=== PATIENT | female | born 1965 | race Caucasian/White ===

== ENCOUNTER 2022-09-03 07:18 | Observation (INO) | payer BC ==
--- OUTSIDE RECORDS SUMMARY | 2022-09-03 07:24 | XMS REPORT | Continuity of Care Document ---
:1965 Author Organization [facility] t Address [address] [place] [address] Care Team Providers Name Role Phone EMILE WELCH Primary Care Physician Unavailable PORFIRIO CHAPMAN Attending Clinician Unavailable MARY CARMEN LUEVANO Attending Clinician Unavailable MARY CARMEN LUEVANO Attending Clinician Unavailable Cheyanne Mancera MD Attending Clinician [phone] Behzad Leger MD Attending Clinician [phone] Craig Castle MD Attending Clinician Doctor Unassigned, [place] Attending Clinician Unavailable Luci Naidu PA-C Attending Clinician 2, [facility] Attending Clinician Unavailable LUCI NAIDU Attending Clinician Unavailable Peace Og MA Attending Clinician Unavailable Pepito Moreno DO Attending Clinician Porfirio Chapman MD Attending Clinician Romulo Orosco CRNA Attending Clinician Davis Grant MD Attending Clinician Pob, [facility] Main Attending Clinician Unavailable Only, [facility] Test Attending Clinician Unavailable Radiology Attending Clinician Unavailable RADIOLOGY Attending Clinician Unavailable PORFIRIO CHAPMAN Admitting Clinician Unavailable CHEYANNE MANCERA Admitting Clinician Unavailable Porfirio Chapman MD Admitting Clinician Payers Payer Name Policy Type Policy Number Effective Date Expiration Date S [facility] [id number] 2020 00:00:00 Problems Condition Condition Condition Status Onset Resolution Last Treating Co mments Source Name Details Category Date Date Treatment Clinician Date Morbid Morbid Disease Active Univers obesity obesity 3-10 ity of with body with body 00:00: [place] s mass index mass index 00 Me dical of [facility] 40.0-49.9 40.0-49.9 Allergies, Adverse Reactions, Alerts Allergy Allergy Status Severity Reaction(s) Onset Inactive Treating Comm ents Source Name Type Date Date Clinician NO KNOWN Drug Active Univers ALLERGIE Class ity of S [facility] Social History Social Habit Start Date Stop Date Quantity Comments Source Tobacco use and 2022-04-19 2022-04-19 Smokeless tobacco [facility] exposure 00:00:00 00:00:00 non-user Exposure to 2022-02-06 2022-02-16 Not sure [facility] SARS-CoV-2 00:00:00 07:51:00 [facility] (event) [place] Alcohol intake 2022-02-16 2022-02-16 Ex-drinker [facility] 00:00:00 00:00:00 (finding) [facility] Sex Ass[birth year] At [birth year] F [facility] 00:00:00 00:00:00 Smoking Status Start Date Stop Date Source Never smoked tobacco [facility] Medications Ordered Filled Start Stop Current Ordering Indication Dosage Frequency Signature Comments Components Source Medication Medication Date Date Medication? Clinician (SIG) Name Name levothyroxi Yes 175ug QD Take 1 Met hodi ne 3-[address] (SYNTHROID) 12:25: (175 mcg [facility] 175 mcg 03 total) by l tablet mouth every morning. lisinopriL Yes 20mg Q.5D Take 1 Metho di (PRINIVIL) 3-15 tablet (20 st 20 mg 12:25: mg total) Hospita tablet 42 by mouth 2 l (two) times a day. levothyroxi Yes 175ug Take 175 U nivers ne 7-05 mcg by ity of (SYNTHROID) 14:35: mouth [place] 175 mcg 22 every Medical tablet morning. Branch levothyroxi Yes 175ug Take 175 U nivers ne 7-05 mcg by ity of (SYNTHROID) 14:35: mouth [place] 175 mcg 22 every Medical tablet morning. Branch levothyroxi 0 Yes 175ug Take 175 U nivers ne 7-05 mcg by ity of (SYNTHROID) 14:35: mouth [place] 175 mcg 22 every Medical tablet morning. Branch levothyroxi 0 Yes 175ug Take 175 U nivers ne 7-05 mcg by ity of (SYNTHROID) 14:35: mouth [place] 175 mcg 22 every Medical tablet morning. Branch levothyroxi 0 Yes 175ug Take 175 U nivers ne 7-05 mcg by ity of (SYNTHROID) 14:35: mouth [place] 175 mcg 22 every Medical tablet morning. Branch levothyroxi 0 Yes 175ug Take 175 U nivers ne 7-05 mcg by ity of (SYNTHROID) 14:35: mouth [place] 175 mcg 22 every Medical tablet morning. Branch levothyroxi Yes 175ug Take 175 U nivers ne 7-05 mcg by ity of (SYNTHROID) 14:35: mouth [place] 175 mcg 22 every Medical tablet morning. Branch levothyroxi Yes 175ug Take 175 U nivers ne 7-05 mcg by ity of (SYNTHROID) 14:35: mouth [place] 175 mcg 22 every Medical tablet morning. Branch levothyroxi Yes 175ug Take 175 U nivers ne 7-05 mcg by ity of (SYNTHROID) 14:35: mouth [place] 175 mcg 22 every Medical tablet morning. Branch levothyroxi 0 Yes 175ug Take 175 U nivers ne 7-05 mcg by ity of (SYNTHROID) 14:35: mouth [place] 175 mcg 22 every Medical tablet morning. Branch levothyroxi 0 Yes 175ug Take 175 U nivers ne 7-05 mcg by ity of (SYNTHROID) 14:35: mouth [place] 175 mcg 22 every Medical tablet morning. Branch levothyroxi 0 Yes 175ug Take 175 U nivers ne 7-05 mcg by ity of (SYNTHROID) 14:35: mouth [place] 175 mcg 22 every Medical tablet morning. Branch gabapentin 0 Yes 600mg Take 600 Un trino 600 mg 6-14 mg by ity of tablet 00:00: mouth 3 [place] 00 (three) Medical times Branch daily. gabapentin 2021-0 Yes 600mg Take 600 Un trino 600 mg 6-14 mg by ity of tablet 00:00: mouth (three) Medical times Branch daily. gabapentin 2022-0 Yes 600mg Take 600 Un trino 600 mg 6-14 mg by ity of tablet 00:00: mouth (three) Medical times Branch daily. gabapentin 2022-0 Yes 600mg Take 600 Un trino 600 mg 6-14 mg by ity of tablet 00:00: mouth (three) Medical times Branch daily. gabapentin 2022-0 Yes 600mg Take 600 Un trino 600 mg 6-14 mg by ity of tablet 00:00: mouth (three) Medical times Branch daily. gabapentin 2022-0 Yes 600mg Take 600 Un trino 600 mg 6-14 mg by ity of tablet 00:00: mouth (three) Medical times Branch daily. gabapentin 2022-0 Yes 600mg Take 600 Un trino 600 mg 6-14 mg by ity of tablet 00:00: mouth (three) Medical times Branch daily. gabapentin 2022-0 Yes 600mg Take 600 Un trino 600 mg 6-14 mg by ity of tablet 00:00: mouth (three) Medical times Branch daily. gabapentin 2022-0 Yes 600mg Take 600 Un trino 600 mg 6-14 mg by ity of tablet 00:00: mouth (three) Medical times Branch daily. gabapentin 2022-0 Yes 600mg Take 600 Un trino 600 mg 6-14 mg by ity of tablet 00:00: mouth (three) Medical times Branch daily. gabapentin 2022-0 Yes 600mg Take 600 Un trino 600 mg 6-14 mg by ity of tablet 00:00: mouth (three) Medical times Branch daily. gabapentin 2022-0 Yes 600mg Take 600 Un trino 600 mg 6-14 mg by ity of tablet 00:00: mouth (three) Medical times Branch daily. gabapentin 2022-0 Yes 600mg Q.[id number] Take 1 [facility] (NEURONTIN) 6-[id number] 600 mg 00:00: 3D (600 mg Hospita tablet 00 total) by l mouth 3 (three) times a day as needed. ARMJAMIE 0 Yes 1{tbl} Take 1 Univers THYROID 120 6-12 tablet by ity of mg tablet 00:00: mouth [place] 00 daily. Medical Branch naproxen 2021-0 Yes 500mg Take 500 Univ ers 500 mg 6-12 mg by ity of tablet 00:00: mouth (two) Medical times Branch daily. ARMOUR 2021-0 Yes 1{tbl} Take 1 Univers THYROID 120 6-12 tablet by ity of mg tablet 00:00: mouth 00 daily. Medical Branch naproxen 2021-0 Yes 500mg Take 500 Univ ers 500 mg 6-12 mg by ity of tablet 00:00: mouth (two) Medical times Branch daily. ARMOUR 0 Yes 1{tbl} Take 1 Univers THYROID 120 6-12 tablet by ity of mg tablet 00:00: mouth 00 daily. Medical Branch naproxen 2021-0 Yes 500mg Take 500 Univ ers 500 mg 6-12 mg by ity of tablet 00:00: mouth (two) Medical times Branch daily. ARMOUR 0 Yes 1{tbl} Take 1 Univers THYROID 120 6-12 tablet by ity of mg tablet 00:00: mouth 00 daily. Medical Branch naproxen 2021-0 Yes 500mg Take 500 Univ ers 500 mg 6-12 mg by ity of tablet 00:00: mouth (two) Medical times Branch daily. ARMOUR 2021-0 Yes 1{tbl} Take 1 Univers THYROID 120 6-12 tablet by ity of mg tablet 00:00: mouth 00 daily. Medical Branch naproxen 2021-0 Yes 500mg Take 500 Univ ers 500 mg 6-12 mg by ity of tablet 00:00: mouth (two) Medical times Branch daily. ARMOUR 2021-0 Yes 1{tbl} Take 1 Univers THYROID 120 6-12 tablet by ity of mg tablet 00:00: mouth 00 daily. Medical Branch naproxen 2021-0 Yes 500mg Take 500 Univ ers 500 mg 6-12 mg by ity of tablet 00:00: mouth 2 (two) Medical times Branch daily. ARMOUR 2021-0 Yes 1{tbl} Take 1 Univers THYROID 120 6-12 tablet by ity of mg tablet 00:00: mouth 00 daily. Medical Branch naproxen 2021-0 Yes 500mg Take 500 Univ ers 500 mg 6-12 mg by ity of tablet 00:00: mouth (two) Medical times Branch daily. ARMOUR 2021-0 Yes 1{tbl} Take 1 Univers THYROID 120 6-12 tablet by ity of mg tablet 00:00: mouth 00 daily. Medical Branch naproxen 2021-0 Yes 500mg Take 500 Univ ers 500 mg 6-12 mg by ity of tablet 00:00: mouth (two) Medical times Branch daily. ARMOUR 2021-0 Yes 1{tbl} Take 1 Univers THYROID 120 6-12 tablet by ity of mg tablet 00:00: mouth 00 daily. Medical Branch naproxen 2021-0 Yes 500mg Take 500 Univ ers 500 mg 6-12 mg by ity of tablet 00:00: mouth (two) Medical times Branch daily. ARMOUR 2021-0 Yes 1{tbl} Take 1 Univers THYROID 120 6-12 tablet by ity of mg tablet 00:00: mouth 00 daily. Medical Branch naproxen 2021-0 Yes 500mg Take 500 Univ ers 500 mg 6-12 mg by ity of tablet 00:00: mouth (two) Medical times Branch daily. ARMOUR 2021-0 Yes 1{tbl} Take 1 Univers THYROID 120 6-12 tablet by ity of mg tablet 00:00: mouth 00 daily. Medical Branch naproxen 2021-0 Yes 500mg Take 500 Univ ers 500 mg 6-12 mg by ity of tablet 00:00: mouth (two) Medical times Branch daily. ARMOUR 2021-0 Yes 1{tbl} Take 1 Univers THYROID 120 6-12 tablet by ity of mg tablet 00:00: mouth 00 daily. Medical Branch naproxen 2021-0 Yes 500mg Take 500 Univ ers 500 mg 6-12 mg by ity of tablet 00:00: mouth (two) Medical times Branch daily. naproxen 2-0 Yes 500mg Q.5D Take 1 Method i (NAPROSYN) 6-[address] 500 MG 00:00: (500 mg Hospita tablet 00 total) by l mouth 2 (two) times a day as needed. thyroid, 2021-0 2023- No 120mg QD Take 1 Metho di pork, 6-12 03-[address] ([place] 00:00: 00:00 (120 mg Hospit a Thyroid) 00 :00 total) by l 120 mg mouth tablet daily. lisinopriL 2021-0 Yes 20mg Take 20 mg U nivers 20 mg 5-25 by mouth 2 ity of tablet 09:03: (two) [place] 14 times Medical daily. Branch lisinopriL 2021-0 Yes 20mg Take 20 mg U nivers 20 mg 5-25 by mouth 2 ity of tablet 09:03: ([facility]) [place] 14 times Medical daily. Branch lisinopriL 2021-0 Yes 20mg Take 20 mg U nivers 20 mg 5-25 by mouth 2 ity of tablet 09:03: ([facility]) [place] 14 times Medical daily. Branch lisinopriL 2021-0 Yes 20mg Take 20 mg U nivers 20 mg 5-25 by mouth 2 ity of tablet 09:03: ([facility]) [place] 14 times Medical daily. Branch lisinopriL 2021-0 Yes 20mg Take 20 mg U nivers 20 mg 5-25 by mouth 2 ity of tablet 09:03: ([facility]) [place] 14 times Medical daily. Branch lisinopriL 2021-0 Yes 20mg Take 20 mg U nivers 20 mg 5-25 by mouth 2 ity of tablet 09:03: ([facility]) [place] 14 times Medical daily. Branch lisinopriL 2021-0 Yes 20mg Take 20 mg U nivers 20 mg 5-25 by mouth 2 ity of tablet 09:03: (two) [place] 14 times Medical daily. Branch lisinopriL 2021-0 Yes 20mg Take 20 mg U nivers 20 mg 5-25 by mouth 2 ity of tablet 09:03: ([facility]) [place] 14 times Medical daily. Branch lisinopriL 2021-0 Yes 20mg Take 20 mg U nivers 20 mg 5-25 by mouth 2 ity of tablet 09:03: ([facility]) [place] 14 times Medical daily. Branch lisinopriL 2021-0 Yes 20mg Take 20 mg U nivers 20 mg 5-25 by mouth 2 ity of tablet 09:03: ([facility]) [place] 14 times Medical daily. Branch lisinopriL 2021-0 Yes 20mg Take 20 mg U nivers 20 mg 5-25 by mouth 2 ity of tablet 09:03: (two) [place] 14 times Medical daily. Branch lisinopriL 2021-0 Yes 20mg Take 20 mg U nivers 20 mg 5-25 by mouth 2 ity of tablet 09:03: (two) [place] 14 times Medical daily. Branch nystatin 2021-0 Yes [id number] Apply to U nivers 100,000 5-25 area(s) 2 ity of unit/gram 00:00: (two) [place] powder 00 times Medical daily. Branch nystatin 2021-0 Yes [id number] Apply to U nivers 100,000 5-25 area(s) 2 ity of unit/gram 00:00: (two) [place] powder 00 times Medical daily. Branch nystatin 2021-0 Yes [id number] Apply to U nivers 100,000 5-25 area(s) 2 ity of unit/gram 00:00: (two) [place] powder 00 times Medical daily. Branch nystatin 2021-0 Yes [id number] Apply to U nivers 100,000 5-25 area(s) 2 ity of unit/gram 00:00: (two) [place] powder 00 times Medical daily. Branch nystatin 2021-0 Yes [id number] Apply to U nivers 100,000 5-25 area(s) 2 ity of unit/gram 00:00: (two) [place] powder 00 times Medical daily. Branch nystatin 2021-0 Yes [id number] Apply to U nivers 100,000 5-25 area(s) 2 ity of unit/gram 00:00: (two) [place] powder 00 times Medical daily. Branch nystatin 2021-0 Yes [id number] Apply to U nivers 100,000 5-25 area(s) 2 ity of unit/gram 00:00: (two) [place] powder 00 times Medical daily. Branch nystatin 2021-0 Yes [id number] Apply to U nivers 100,000 5-25 area(s) 2 ity of unit/gram 00:00: (two) [place] powder 00 times Medical daily. Branch nystatin 2021-0 Yes [id number] Apply to U nivers 100,000 5-25 area(s) 2 ity of unit/gram 00:00: (two) [place] powder 00 times Medical daily. Branch nystatin 0 Yes [id number] Apply to U nivers 100,000 5-25 area(s) 2 ity of unit/gram 00:00: (two) [place] powder 00 times Medical daily. Branch nystatin 2020-0 Yes [id number] Apply to U nivers 100,000 5-25 area(s) 2 ity of unit/gram 00:00: (two) [place] powder 00 times Medical daily. Branch nystatin 2020-0 Yes [id number] Apply to U nivers 100,000 5-25 area(s) 2 ity of unit/gram 00:00: (two) [place] powder 00 times Medical daily. Branch nystatin 2022- No Apply Methodi (MYCOSTATIN 525 03-14 topically. s t ) 100,000 00:00: 00:00 Hospita unit/gram 00 :00 l powder Immunizations Ordered Filled Immunization Date Status Comments [facility] e Immunization Name Name SARS-COV-2 COVID-19 2021-06-09 Completed Unive rsity of MODERNA 12+ YRS 00:00:00 [place] Med ical VACCINE Branch SARS-COV-2 COVID-19 2021-06-09 Completed Unive rsity of MODERNA 12+ YRS 00:00:00 [place] Med ical VACCINE Branch SARS-COV-2 COVID-19 2021-06-09 Completed Unive rsity of MODERNA 12+ YRS 00:00:00 [place] Med ical VACCINE Branch SARS-COV-2 COVID-19 2021-06-09 Completed Unive rsity of MODERNA 12+ YRS 00:00:00 [place] Med ical VACCINE Branch SARS-COV-2 COVID-19 2021-06-09 Completed Unive rsity of MODERNA 12+ YRS 00:00:00 [place] Med ical VACCINE Branch SARS-COV-2 COVID-19 2021-06-09 Completed Unive rsity of MODERNA 12+ YRS 00:00:00 [place] Med ical VACCINE Branch SARS-COV-2 COVID-19 2021-06-09 Completed Unive rsity of MODERNA 12+ YRS 00:00:00 [place] Med ical VACCINE Branch SARS-COV-2 COVID-19 2021-06-09 Completed Unive rsity of MODERNA 12+ YRS 00:00:00 [place] Med ical VACCINE Branch SARS-COV-2 COVID-19 2021-06-09 Completed Unive rsity of MODERNA 12+ YRS 00:00:00 [place] Med ical VACCINE Branch SARS-COV-2 COVID-19 2021-06-09 Completed Unive rsity of MODERNA 12+ YRS 00:00:00 [place] Med ical VACCINE Branch SARS-COV-2 COVID-19 2021-06-09 Completed Unive rsity of MODERNA 12+ YRS 00:00:00 [place] Med ical VACCINE Branch SARS-COV-2 COVID-19 2021-06-09 Completed Unive rsity of MODERNA 12+ YRS 00:00:00 [place] Med ical VACCINE Branch SARS-COV-2 COVID-19 2020-10-04 Completed Unive rsity of MODERNA 12+ YRS 00:00:00 [place] Med ical VACCINE Branch SARS-COV-2 COVID-19 2020-10-04 Completed Unive rsity of MODERNA 12+ YRS 00:00:00 [place] Med ical VACCINE Branch SARS-COV-2 COVID-19 2020-10-04 Completed Unive rsity of MODERNA 12+ YRS 00:00:00 [place] Med ical VACCINE Branch SARS-COV-2 COVID-19 2020-10-04 Completed Unive rsity of MODERNA 12+ YRS 00:00:00 [place] Med ical VACCINE Branch SARS-COV-2 COVID-19 2020-10-04 Completed Unive rsity of MODERNA 12+ YRS 00:00:00 [place] Med ical VACCINE Branch SARS-COV-2 COVID-19 2020-10-04 Completed Unive rsity of MODERNA 12+ YRS 00:00:00 [place] Med ical VACCINE Branch SARS-COV-2 COVID-19 2020-10-04 Completed Unive rsity of MODERNA 12+ YRS 00:00:00 [place] Med ical VACCINE Branch SARS-COV-2 COVID-19 2020-10-04 Completed Unive rsity of MODERNA 12+ YRS 00:00:00 [place] Med ical VACCINE Branch SARS-COV-2 COVID-19 2020-10-04 Completed Unive rsity of MODERNA 12+ YRS 00:00:00 [place] Med ical VACCINE Branch SARS-COV-2 COVID-19 2020-10-04 Completed Unive rsity of MODERNA 12+ YRS 00:00:00 [place] Med ical VACCINE Branch SARS-COV-2 COVID-19 2020-10-04 Completed Unive rsity of MODERNA 12+ YRS 00:00:00 [place] Med ical VACCINE Branch SARS-COV-2 COVID-19 2020-10-04 Completed Unive rsity of MODERNA 12+ YRS 00:00:00 [place] Med ical VACCINE Branch SARS-COV-2 COVID-19 2020-09-06 Completed Unive rsity of MODERNA 12+ YRS 00:00:00 [place] Med ical VACCINE Branch SARS-COV-2 COVID-19 2020-09-06 Completed Unive rsity of MODERNA 12+ YRS 00:00:00 [place] Med ical VACCINE Branch SARS-COV-2 COVID-19 2020-09-06 Completed Unive rsity of MODERNA 12+ YRS 00:00:00 [place] Med ical VACCINE Branch SARS-COV-2 COVID-19 2020-09-06 Completed Unive rsity of MODERNA 12+ YRS 00:00:00 [place] Med ical VACCINE Branch SARS-COV-2 COVID-19 2020-09-06 Completed Unive rsity of MODERNA 12+ YRS 00:00:00 [place] Med ical VACCINE Branch SARS-COV-2 COVID-19 2020-09-06 Completed Unive rsity of MODERNA 12+ YRS 00:00:00 [place] Med ical VACCINE Branch SARS-COV-2 COVID-19 2020-09-06 Completed Unive rsity of MODERNA 12+ YRS 00:00:00 [place] Med ical VACCINE Branch SARS-COV-2 COVID-19 2020-09-06 Completed Unive rsity of MODERNA 12+ YRS 00:00:00 [place] Med ical VACCINE Branch SARS-COV-2 COVID-19 2020-09-06 Completed Unive rsity of MODERNA 12+ YRS 00:00:00 [place] Med ical VACCINE Branch SARS-COV-2 COVID-19 2020-09-06 Completed Unive rsity of MODERNA 12+ YRS 00:00:00 [place] Med ical VACCINE Branch SARS-COV-2 COVID-19 2020-09-06 Completed Unive rsity of MODERNA 12+ YRS 00:00:00 [facility] SARS-COV-2 COVID-19 2020-09-06 Completed Unive rsity of MODERNA 12+ YRS 00:00:00 [facility] VACCINE [place] Zoster Vaccine 2020-05-06 Completed University of Recombinant 00:00:00 [facility] Zoster Vaccine 2020-05-06 Completed University of Recombinant 00:00:00 [facility] Zoster Vaccine 2020-05-06 Completed University of Recombinant 00:00:00 [facility] Zoster Vaccine 2020-05-06 Completed University of Recombinant 00:00:00 [facility] Zoster Vaccine 2020-05-06 Completed University of Recombinant 00:00:00 [facility] Zoster Vaccine 2020-05-06 Completed University of Recombinant 00:00:00 [facility] Zoster Vaccine 2020-05-06 Completed University of Recombinant 00:00:00 [facility] Zoster Vaccine 2020-05-06 Completed University of Recombinant 00:00:00 [facility] Zoster Vaccine 2020-05-06 Completed University of Recombinant 00:00:00 [facility] Zoster Vaccine 2020-05-06 Completed University of Recombinant 00:00:00 [facility] Zoster Vaccine 2020-05-06 Completed University of Recombinant 00:00:00 [facility] Zoster Vaccine 2020-05-06 Completed University of Recombinant 00:00:00 [facility] Zoster Vaccine 2020-03-07 Completed University of Recombinant 00:00:00 [facility] Zoster Vaccine 2020-03-07 Completed University of Recombinant 00:00:00 [facility] Zoster Vaccine 2020-03-07 Completed University of Recombinant 00:00:00 [facility] Zoster Vaccine 2020-03-07 Completed University of Recombinant 00:00:00 [facility] Zoster Vaccine 2020-03-07 Completed University of Recombinant 00:00:00 [facility] Zoster Vaccine 2020-03-07 Completed University of Recombinant 00:00:00 [facility] Zoster Vaccine 2020-03-07 Completed University of Recombinant 00:00:00 [facility] Zoster Vaccine 2020-03-07 Completed University of Recombinant 00:00:00 [facility] Zoster Vaccine 2020-03-07 Completed University of Recombinant 00:00:00 [facility] Zoster Vaccine 2020-03-07 Completed University of Recombinant 00:00:00 [facility] Zoster Vaccine 2020-03-07 Completed University of Recombinant 00:00:00 [facility] Zoster Vaccine 2020-03-07 Completed University of Recombinant 00:00:00 [facility] Vital Signs Vital Name Observation Time Observation Value Comments Source Systolic blood 2022-02-16 13:20:00 130 mm[Hg] Univer sity of pressure [facility] Diastolic blood 2022-02-16 13:20:00 79 mm[Hg] Unive rsity of [facility] Heart rate 2022-02-16 13:19:00 78 /min [facility] Body temperature 2022-02-16 13:19:[address] [facility] 2022-02-16 13:19:00 18 /min [facility] Body height 2022-02-16 13:19:00 177.8 cm [facility] Body weight 2022-02-16 13:19:00 158.759 kg [facility] BMI 2022-02-16 13:19:00 50.22 kg/m2 [facility] Systolic blood 2022-08-25 16:50:00 142 mm[Hg] [facility] pressure Diastolic blood 2022-08-25 16:50:00 67 mm[Hg] [facility] pressure Heart rate 2022-08-25 16:50:00 63 /min [facility] Respiratory rate 2022-08-25 16:50:00 10 /min [facility] Oxygen saturation in 2022-08-25 16:50:00 98 /min [facility] Arterial blood by Pulse oximetry Body temperature 2022-08-25 16:22:00 36.39 Tsering [facility] Body height 2022-08-25 14:33:00 177.8 cm [facility] Body weight 2022-08-25 14:33:00 158.759 kg [facility] BMI 2022-08-25 14:33:00 50.22 kg/m2 [facility] Procedures Procedure Date / Time Performing Clinician Source Performed OR [place] < 1 HOUR 2022-08-25 16:24:00 [facility] Elmer Ricci INJECTION, KNEE 2022-08-25 16:01:00 [facility] Elmer Ricci XR KNEE 4+ VW LEFT 2022-04-19 15:32:25 Craig Castle [facility] [place] ARTHROCENTESIS 2022-04-19 15:30:00 [facility] ASPIR&/INJ MAJOR JT/BURSA W/O US EXTERNAL PROVIDER RECORDS 2022-03-16 05:01:00 Doctor Jama, [facility] Name [facility] EXTERNAL PROVIDER RECORDS 2022-02-22 05:01:00 Doctor Unastantonigned, [facility] Name [facility] REFERRAL- 2022-02-16 05:01:00 Doctor Jama, [facility] REQUEST/RESPONSE [place] [facility] Plan of Care Planned Activity Planned Date Details Comments Source Future Scheduled 2022-09-01 Hepatitis C screening [facility] Test 08:13:29 (procedure) [code = [id number]] Future Scheduled 2022-09-01 Screening for [facility] Test 08:13:29 malignant neoplasm of cervix (procedure) [code = [id number]] Future Scheduled 2022-09-01 BREAST CANCER [facility] Test 08:13:29 SCREENING [code = BREAST CANCER SCREENING] Future Scheduled 2022-09-01 COLONOSCOPY SCREENING [facility] Test 08:13:29 [code = COLONOSCOPY SCREENING] Future Scheduled 2022-09-01 COVID-19 VACCINE (5 - [facility] Test 08:13:29 Booster for Moderna series) [code = COVID-19 VACCINE (5 - Booster for Moderna series)] Future Scheduled 2022-09-01 INFLUENZA VACCINE Method [facility] Test 08:13:29 [code = INFLUENZA VACCINE] Encounters Start End Encounter Admission Attending Care Care Encounter Source Date/Time Date/Time Type Type Clinicians Facility Department ID 2021-04-11 Outpatient R ADELA [facility] ISMAEL [id number] Univers 14:07:42 [facility] 2022-08-25 2022-08-25 [facility], [id number] Methodi 07:23:00 12:25:00 Encounter Rastafari [id number] [place] [id number] Hospit a Radhames .[id number] l .8 2022-08-25 2022-08-25 Anesthesia Pasdar-Aislinn [id number] Methodi 11:01:00 11:18:00 Event ceferino, 11627.1.[address] Behz[address] 3.430.2.7 Hosp loida .3.700054 l .8 2022-08-25 2022-08-25 Surgery Peccora, 1.2.840.1 [id number] 81084 Methodi 10:39:00 11:01:[address] El[place] 3.430.2.7 Hospit a Radhames .3.670897 l .8 2022-08-25 2022-08-25 Outpatient [facility] [id number] [id number] [address] 00:00:00 00:00:00 CHEYANNE [address] 2022-08-25 2022-08-25 Travel 1.2.840.1 1.2.643.432 [id number] [id number] Methodi 00:00:00 00:00:[address] 3.430.2.7 0.2.7.3.698 Ho spita .3.083265 084.8 l .8 2022-04-19 2022-04-19 [facility] [place], 1.2.840.1 [id number] 08837 72979 Methodi 09:25:25 23:59:00 Encounter Craig Miramontes 16449.1.[address] 3.430.2.7 Hospit a .3.181962 l .8 2022-04-19 2022-04-19 Office [place], 1.2.840.1 [id number] 0334 Methodi 09:30:00 10:04:20 Visit Craig Miramontes 42745.1.1 258 s t 3.430.2.7 Hospit a .3.112920 l .8 2022-04-19 2022-04-19 Outpatient [facility] [id number] [address] 00:00:00 00:00:00 CRAIG Abreu Method i st 2022-04-19 2022-04-19 [facility], 1.2.840.1 [id number] Methodi 00:00:00 00:00:00 Only Craig Miramontes 14859.1.1 244 s t 3.430.2.7 Hospit a .3.477797 l .8 2022-04-19 2022-04-19 Travel 1.2.840.1 1.2.595.333 7492 [id number] Methodi 00:00:00 00:00:[address] 3.430.2.7 0.2.7.3.698 Ho spita .3.860730 084.8 l .8 2022-04-19 2022-04-19 Outpatient [facility] [id number] [address] 00:00:00 00:00:00 CRAIG 407 Method i 2022-04-19 2022-04-19 Outpatient [facility] [id number] [address] 00:00:00 00:00:00 CRAIG 246 Method i 2022-03-16 2022-03-16 Orders Doctor MÓNICA 1.2.840.114 [id number] Univers 00:00:00 00:00:00 Only Unassigned, TRUE 350.1.13.10 ity of [place] [facility] 4.2.7.2.686 Rc as [phone] [address] 2022-03-02 2022-03-02 Telephone [facility] 1.2.840.114 [id number] Univers 00:00:00 00:00:00 Luci ALLAN 350.1.13.10 i ty [place] [phone] Mo dical NAL [address] [place] [address] 2022-02-23 2022-02-23 Telephone [facility] 1.2.840.114 96 [id number] Univers 00:00:00 00:00:00 Luci ALLAN 350.1.13.10 i ty [place] [phone] Mo dical NAL [address] [place] [address] 2022-02-22 2022-02-22 Orders Doctor MÓNICA 1.2.840.114 [id number] Univers 00:00:00 00:00:00 Only Unassigned, TRUE 350.1.13.10 ity of [place] [facility] 4.2.7.2.686 Rc as [phone] [address] 2022-02-19 2022-02-19 Telephone Evangelista [facility] 1.2.840.114 [id number] Univers 00:00:00 00:00:00 Luci ALLAN 350.1.13.10 i ty [place] [phone] Mo dical NAL 134 [facility] 2022-02-18 2022-02-18 Telephone [facility] 1.2.840.114 96 [id number] Univers 00:00:00 00:00:00 Luci ALLAN 350.1.13.10 i ty [place] [phone] Mo dical NAL 134 [facility] 2022-02-16 2022-02-16 Financial Professional 2, Adc Lab [facility] 1.2.840.114 [id number] Univers 09:00:00 09:15:00 Visit Luci Naidu 350.1.13.10 it[facility] 4.2.7.2.[place] [phone] [facility] 2022-02-16 2022-02-16 Outpatient R EVANGELISTA [facility] [id number] Univers 08:00:00 08:41:29 LUCI neves [facility] 2022-02-16 2022-02-16 Office Evangelista [facility] 1.2.646.351 [id number] [id number] Univers 08:00:00 08:41:29 Visit Luci ALLAN 350.1.13.10 i ty [place] [phone] Mo dical NAL [address] [place] [address] 2022-02-16 2022-02-16 Outpatient R EVANGELISTA [facility] [id number] Univers 08:00:00 08:41:29 LUCI itadrian [facility] 2022-02-16 2022-02-16 Telephone [facility] 1.2.840.114 [id number] Univers 00:00:00 00:00:00 Luci ALLAN 350.1.13.10 i ty [place] [phone] Mo dical NAL [address] [place] [address] 2022-02-16 2022-02-16 Orders Doctor MÓNICA 1.2.840.114 [id number] Univers 00:00:00 00:00:00 Only Unassigned, TRUE 350.1.13.10 ity of [place] [facility] 4.2.7.2.686 Rc as [phone] [address] 2022-02-12 2022-02-12 [facility] 1.2.840.114 [id number] [facility] 00:00:00 00:00:00 Luci ALLAN 350.1.13.10 i ty [place] [phone] Mo dical NAL [address] [place] [address] 2022-02-11 2022-02-11 Out[facility] [id number] Univers 10:30:00 10:40:47 LUCI ity [facility] 2022-02-11 2022-02-11 [facility] 1.2.994.862 0742 3400 Univers 10:30:00 10:40:47 Visit Luci ALLAN 350.1.13.10 i ty [place] [phone] Mo dical NAL [address] [place] [address] 2022-01-26 2022-01-26 [facility] 1.2.840.114 [id number] Univers 00:00:00 00:00:00 Luci ALLAN 350.1.13.10 i ty [place] [phone] Mo dical NAL [address] [place] [address] 2022-01-21 2022-01-21 Telephone [facility] 1.2.840.114 [id number] Univers 00:00:00 00:00:00 Luci ALLAN 350.1.13.10 i ty [place] [phone] [address] 2021-12-16 2021-12-16 Telephone [facility] 1.2.840.114 [id number] Univers 00:00:00 00:00:00 Luci ROGERSGASPER 350.1.13.10 i ty [place] [phone] [address] 2021-12-15 2021-12-15 Outpatient [facility] [id number] Univers 15:00:00 15:07:05 LUCI neves [facility] 2021-12-15 2021-12-15 Office [facility] 1.2.889.078 [id number] 6405 Univers 15:00:00 15:07:05 Visit Lucistewart ALLAN 350.1.13.10 i ty [place] [phone] [address] 2021-12-15 2021-12-15 Orders Doctor MÓNICA 1.2.840.114 [id number] Univers 00:00:00 00:00:00 Only Unassigned, TRUE 350.1.13.10 ity of [place] [facility] 4.2.7.2.686 Rc as [phone] [facility] [address] [place] 2021-11-10 2021-11-10 Outpatient [facility] [id number] [id number] Univers 08:00:00 08:00:00 [facility] 2021-11-03 2021-11-03 Pre Visit TEVIN Og 1.2.766.127 [id number] [id number] Univers 00:00:00 00:00:00 Outreach Peace CONTRERAS 350.1.13.10 [place] [phone] [facility] [address] [place] 2020-12-11 2020-12-11 Orders Doctor MÓNICA 1.2.840.114 [id number] Univers 00:00:00 00:00:00 Only Unassigned, TRUE 350.1.13.10 ity of [place] [facility] 4.2.7.2.686 Rc as [phone] [facility] ravin [address] [place] 2020-12-09 2020-12-09 Case Evangelista [facility] 1.2.685.875 [id number] 0222 Univers 00:00:00 00:00:00 Management Luci Rogerston 350.1.13.10 [place] [phone] Mo dical nal 134 [facility] 2020-11-06 2020-11-06 Case Evangelista [facility] 1.2.238.376 [id number] 8491 Univers 00:00:00 00:00:00 Management Luci Deepali 350.1.13.10 [place] [phone] [facility] 2020-11-04 2020-11-04 Office Evangelista [facility] 1.2.025.235 1103 8292 Univers 08:49:32 09:28:36 Visit Luci Allan 350.1.13.10 i ty [place] [phone] Mo dicnc nal 134 [facility] 2020-11-04 2020-11-04 Outpatient R EVANGELISTA [facility] [id number] [id number] Univers 09:00:00 09:00:00 [facility] 2020-10-06 2020-10-06 Outpatient R [facility] [id number] Univers 09:00:00 09:00:00 [facility] 2020-09-02 2020-09-02 [facility] 1.2.840.114 [id number] Univers 00:00:00 00:00:00 Outreach Pepito PRIMARY 350.1.13.[address] [facility] [place]2.7.2.[place] [phone] Mo dical [address] [place] 2020-09-02 2020-09-02 Telephone Evangelista [facility] 1.2.840.114 [id number] Univers 00:00:00 00:00:00 Luci Allan 350.1.13.10 i ty [place] [phone] Mo dical nal 134 [facility] 2020-08-29 2020-08-29 Telephone [facility] 1.2.840.114 [id number] Univers 00:00:00 00:00:00 Luci Allan 350.1.13.10 i ty [place] [phone] Mo dical nal [address] [place] [address] 2020-08-28 2020-08-28 Office [facility] 1.2.860.661 [id number] 7994 Univers 09:57:46 11:02:02 Visit Luci Allan 350.1.13.10 i ty of [place] [phone] Mo dical nal [address] [place] [address] 2020-08-28 2020-08-28 Outpatient [facility] [id number] Univers 10:00:00 10:00:00 LUCI ity [facility] 2020-08-28 2020-08-28 Orders Doctor MÓNICA 1.2.840.114 [id number] Univers 00:00:00 00:00:00 Only Unassigned, TRUE 350.1.13.10 ity of [place] [facility] 4.2.7.2.686 Rc as [phone] [facility] [address] [place] 2020-07-07 2020-07-07 [facility] 1.2.840.114 [id number] Univers 06:32:00 11:18:00 Encounter Porfirio Allan 350.1.13.10 [place] Surgical [phone] [facility] [address] 2020-07-07 2020-07-07 Anesthesia Romulo Orosco [facility] 1.2.840.11 [id number] Univers 08:56:00 10:15:00 Davis Grant 350.1.13.10 it[place] [phone] [place] [address] [address] 2020-07-07 2020-07-07 Orders Doctor MÓNICA 1.2.840.114 [id number] Univers 00:00:00 00:00:00 Only Unassigned, TRUE 350.1.13.10 ity of [place] [facility]OS[facility] 4.2.7.2.686 Rc as [phone] [address] 2020-07-04 2020-07-04 [facility] 1.2.840.114 [id number] Univers 10:48:25 23:59:00 Encounter Porfirio Allan 350.1.13.10 [place] [phone] [facility] [address] [place] [address] 2020-07-04 2020-07-04 Financial Professional Uriel, Adc Lab Main [facility] 1.2.8 40.114 [id number] Univers 08:42:33 08:57:33 Visit Porfirio Chapman 350.1.13.10 [place] [facility] [phone] Mo dical [facility] 353 [facility] 2020-07-04 2020-07-04 Outpatient R [facility] [id number] Univers 08:30:00 08:30:00 PORFIRIO itadrian [facility] 2020-07-04 2020-07-04 Orders Doctor MÓNICA 1.2.840.114 [id number] Univers 00:00:00 00:00:00 Only Unassigned, TRUE 350.1.13.10 ity of [place] [facility]OSPITAL 4.2.7.2.686 Rc as [phone] [address] 2020-06-12 2020-06-12 [facility] 1.2.840.114 [id number] Univers 16:13:48 23:59:00 Encounter Porfirio Allan 350.1.13.10 it[place] [phone] [address] 2020-06-12 2020-06-12 [facility] 1.2.840.114 [id number] Univers 16:02:29 16:12:00 Encounter Porfirio Allan 350.1.13.10 it[place] of [place] [phone] [facility] [address] 2020-06-12 2020-06-12 Laboratory Only, Adc Test [facility] 1.2.840. 114 [id number] Univers 15:52:30 16:07:30 Only Porfirio Chapman 350.1.13.10 it[place] of [place] [phone] [facility] [address] 2020-06-12 2020-06-12 Financial Professional Uriel, Adc Lab Main [facility] 1.2.8 40.114 [id number] Univers 15:51:46 16:06:46 Visit Porfirio Chapman 350.1.13.10 it[place] of [place] [phone] Mo dical [facility] [address] [facility] 2020-06-12 2020-06-12 Outpatient R ADELA [facility] [id number] Univers 15:00:00 15:00:00 PORFIRIO ity of [facility] 2020-06-10 2020-06-10 Hospital Radiology [facility] 1.2.840.114 [id number] Univers 08:57:13 23:59:00 Encounter Deepali 350.1.13.10 it[place] of [place] [phone] [facility] [address] 2020-06-10 2020-06-10 Outpatient R RADIOLOGY [facility] [id number] Univers 00:00:00 00:00:00 ity of [facility] 2020-06-10 2020-06-10 Orders Doctor MÓNICA 1.2.840.114 [id number] Univers 00:00:00 00:00:00 Only Unassigned, TRUE 350.1.13.10 ity of [place] [facility] 4.2.7.2.686 Rc as [phone] [facility] [address] Results This patient has no known results.
[2022-09-03 08:09] LABS: Absolute Lymphocytes (CBC) 1.1 K/uL (0.7-4.9); Hematocrit 42.9 % (36.0-45.0); Lymphocytes % 16.8 % (15.3-44.8); MCV 97.3 fL (80-100); MPV 9.4 fL (7.6-11.3); RBC Red Blood Cell Count 4.41 M/uL (3.86-4.86)
[2022-09-03 08:37] LABS: Albumin 3.8 g/dL (3.4-5.0); Bilirubin Total 0.8 mg/dL (0.2-1.0); Potassium 4.5 mEq/L (3.5-5.1); Troponin High Sensitivity 33.8 pg/mL (<58.9)
--- NOTE | 2022-09-03 09:08 | RAD REPORT ---
EXAM DESCRIPTION: RAD - Chest Single View - 09/03/2022 8:04 am CLINICAL HISTORY: DYSPNEA Chest pain. COMPARISON: Chest Pa And Lat (2 Views) dated 01/04/2020 FINDINGS: Portable technique limits examination quality. Mild interstitial pulmonary edema. The heart is mildly prominent. No displaced fractures. IMPRESSION: Mild CHF.
--- NOTE | 2022-09-03 09:49 | RAD REPORT ---
EXAM DESCRIPTION: CT - Chest For Pe Angio - 09/03/2022 9:24 am CLINICAL HISTORY: Chest pain. DYSPNEA COMPARISON: No comparisons TECHNIQUE: CT angiogram of the pulmonary arteries was performed with MIP. All CT scans are performed using dose optimization technique as appropriate and may include automated exposure control or mA/KV adjustment according to patient size. FINDINGS: Filling defects are seen in the right main and right segmental branch pulmonary arteries c ompatible pulmonary embolism. Small subsegmental branch pulmonary emboli are also present on the left . No evidence of RV strain pattern. No acute aortic finding demonstrated. Mild linear atelectasis is present in both lung bases. No significant pericardial or pleural fluid. No concerning bony finding. Gastric banding. IMPRESSION: Positive for pulmonary emboli bilaterally, greater on the right. Linear atelectasis is present both lung bases.
[2022-09-03] MEDS ORDERED: ENOXAPARIN 60 MG/0.6 ML SQ ONE (10:24)
[2022-09-03] MEDS ORDERED: ENOXAPARIN 100 MG/ML SYR SQ ONE (10:24)
--- NOTE | 2022-09-03 11:21 | ER ---
Nurse's Notes [facility] Name: Lorena Khalil Age: 57 yrs Sex: Female : 1965 Arrival Date: 09/03/2022 Time: 07:22 Bed 7 Private MD: Carri Viveros H Diagnosis: Pulmonary embolism without acute cor pulmonale;Acute respiratory failure with hypoxia Presentation: 09/03 07:28 Chief complaint: Patient states: Increased shortness of breath on exertion since jl7 08/25/22. 07:28 Onset of symptoms was August 25, 2022. jl7 07:28 Acuity: ARABELLA 3 jl7 07:30 Coronavirus screen: shortness of breath. Ebola Screen: Patient denies travel to an [facility] Ebola-affected area in the 21 days before illness onset. Initial Sepsis Screen: Does the patient meet any 2 criteria? RR > 20 per min. HR > 90 bpm. Yes Does the patient have a suspected source of infection? No. Patient's initial sepsis screen is negative. Risk Assessment: Do you want to hurt yourself or someone else? Patient reports no desire to harm self or others. 07:30 Method Of Arrival: Wheelchair aa Triage Assessment: 07:42 General: Appears in no apparent distress. uncomfortable, Behavior is calm, cooperative, jl7 appropriate for age. Pain: Denies pain. Respiratory: Reports shortness of breath on exertion Onset: The symptoms/episode began/occurred gradually, the patient has mild shortness of breath. Historical: - Allergies: 07:42 No Known Allergies; jl7 - Home Meds: 07:42 lisinopril 20 mg Oral tab 1 tab once daily [Active]; Synthroid 150 mcg Oral tab 1 tab jl7 once daily [Active]; gabapentin (bulk) [Active]; Naproxen Oral [Active]; - PMHx: 07:30 uterine fibroids; Hypothyroidism; aa5 07:42 Hypertensive disorder; jl7 - PSHx: 07:42 Appendectomy; Cholecystectomy; lap band; section; jl7 - Immunization history:: Adult Immunizations up to date. - Social history:: Smoking status: Patient denies any tobacco usage or history of. - Family history:: not pertinent. Screenin:10 [facility] ED Fall Risk Assessment (Adult) Score/Fall Risk Level 0 - 2 = Low Risk hb Oriented to surroundings, Maintained a safe environment, Educated pt \T\ family on fall prevention, incl call for assistance when getting out of bed. Abuse screen: Denies threats or abuse. Denies injuries from another. Nutritional screening: No deficits noted. Tuberculosis screening: No symptoms or risk factors identified. Assessment: 08:10 General: Appears in no apparent distress. Behavior is calm, cooperative. Pain: Denies hb pain. Neuro: Level of Consciousness is awake, alert, obeys commands, Oriented to person, place, time, situation. Cardiovascular: Patient's skin is warm and dry. Respiratory: Reports shortness of breath at rest on exertion Respiratory effort is even, unlabored, Respiratory pattern is regular, symmetrical. GI: No signs and/or symptoms were reported involving the gastrointestinal system. : No signs and/or symptoms were reported regarding the genitourinary system. EENT: No signs and/or symptoms were reported regarding the EENT system. Derm: Skin is pink, warm \T\ dry. Musculoskeletal: No signs and/or symptoms reported regarding the musculoskeletal system. 09:09 Reassessment: Pt to bathroom via wheelchair with and nurse, after returning to bed, RR 32, SpO2 89%, respirations labored. Dr. Lang notified. 09:10 Reassessment: Dr. Lang at bedside. hb 10:00 Reassessment: Patient appears in no apparent distress at this time. Patient and/or hb family updated on plan of care and expected duration. Pain level reassessed. Patient is alert, oriented x 3, equal unlabored respirations, skin warm/dry/pink. 10:34 Reassessment: US at bedside. hb 11:27 General: Assisted pt to restroom via WC. kb3 11:32 Reassessment: Patient appears in no apparent distress at this time. Patient and/or hb family updated on plan of care and expected duration. Pain level reassessed. Patient is alert, oriented x 3, equal unlabored respirations, skin warm/dry/pink. 12:30 Reassessment: Patient appears in no apparent distress at this time. Patient and/or eh3 family updated on plan of care and expected duration. Pain level reassessed. Patient is alert, oriented x 3, equal unlabored respirations, skin warm/dry/pink. 13:30 Reassessment: Patient appears in no apparent distress at this time. Patient and/or 3 family updated on plan of care and expected duration. Pain level reassessed. Patient is alert, oriented x 3, equal unlabored respirations, skin warm/dry/pink. 13:33 Reassessment: Nurse to nurse report received by Susana on 2nd floor. [facility] Vital Signs: 07:28 BP 160 / 97; Pulse 91; Resp 17; Temp 97.7(O); Pulse Ox 94% on R/A; Weight 155.13 kg; jl7 Height 5 ft. 10 in. ; Pain 0/10; 08:30 BP 163 / 81; Pulse 77; Pulse Ox 94% on R/A; hb 09:08 Resp 32; Pulse Ox 89% on R/A; hb 09:10 BP 161 / 73; Pulse 83; Resp 21; Pulse Ox 94% on R/A; hb 10:30 BP 140 / 86; Pulse 80; Resp 21; Pulse Ox 95% ; hb 11:30 BP 144 / 87; Pulse 85; Resp 20; Pulse Ox 94% on R/A; hb 12:30 BP 126 / 66; Pulse 82; Resp 22; Pulse Ox 95% on R/A; eh3 13:30 BP 112 / 76; Pulse 75; Resp 20; Pulse Ox 96% on R/A; 3 07:28 Body Mass Index 49.07 (155.13 kg, 177.8 cm) jl7 07:28 Pain Scale: Adult jl7 09:08 after bathroom trip via wheelchair hb ED Course: 07:22 Patient arrived in ED. rg4 07:23 Carri Viveros DO is Private Physician. rg4 07:29 Darien Lang MD is Attending Physician. rt 07:30 Arm band placed on Patient placed in an exam room, on a stretcher. aa5 07:41 Triage completed. jl7 07:59 Inserted saline lock: 20 gauge in left antecubital area, using aseptic technique. Blood hb collected. 08:05 Chest Single View XRAY In Process Unspecified. EDMS 08:11 Patient has correct armband on for positive identification. hb 09:26 CT Chest For PE Angio In Process Unspecified. EDMS 11:20 Chintan Mora is Hospitalizing Provider. rt 13:35 No provider procedures requiring assistance completed. Patient admitted, IV remains in eh3 place. Administered Medications: 10:24 Drug: Enoxaparin Sub-Q 1 mg/kg {Note: administered 150mg per MD (100mg given to right aa5 lower abd and 50mg given to left lower abd).} Route: Sub-Q; Site: right lower abdomen; 13:36 Follow up: Response: No adverse reaction [facility] Medication: 08:11 VIS not applicable for this client. hb Outcome: 11:20 Decision to Hospitalize by Provider. rt 13:36 Admitted to Med/surg accompanied by tech, via wheelchair, room 213, with chart, Report 3 called to Susana 13:36 Condition: stable 13:36 Instructed on the need for admit. 13:47 Patient left the ED. [facility] Signatures: Dispatcher [employer] EDMS Ewelina Millan, RN RN aa5 Tabatha Tee, RN RN Alberta Owens4 Cristofer Saxena RN RN jl7 Anna Junior RN RN eh3 Ramya Fisher RN RN denise3 Darien Lang MD MD rt Corrections: (The following items were deleted from the chart) 07:43 07:30 Initial Sepsis Screen: Does the patient meet any 2 criteria? RR > 20 per min. aa5 Does the patient have a suspected source of infection? No. Patient's initial sepsis screen is negative. 5 13:41 07:36 Ewelina Millan, RN is Primary Nurse. aa5 aa5
--- NOTE | 2022-09-03 11:21 | EDPHYS ---
Physician Documentation [facility] Name: Lorena Khalil Age: 57 yrs Sex: Female : 1965 Arrival Date: 09/03/2022 Time: 07:22 Bed 7 Private MD: Carri Viveros H ED Physician Darien Lang HPI: 09/03 08:09 This 57 yrs old Female presents to ER via Wheelchair with complaints of Shortness Of rt Breath, Breathing Difficulty. 08:09 Patient presents to the ED with dyspnea. Patient states that she has been having issues rt with shortness of breath for some time, however, on the , she had a nerve ablation procedure done under moderate sedation. She states that her symptoms have progressively worsened since then. She has difficulty walking due to the shortness of breath. Patient states that previously, she would sleep in a chair due to snoring and difficulty breathing, this is not unchanged. Denies chest pain, other acute complaints. Symptoms are moderate in severity, no other aggravating or alleviating factors.. Historical: - Allergies: 07:42 No Known Allergies; jl7 - Home Meds: 07:42 lisinopril 20 mg Oral tab 1 tab once daily [Active]; Synthroid 150 mcg Oral tab 1 tab jl7 once daily [Active]; gabapentin (bulk) [Active]; Naproxen Oral [Active]; - PMHx: 07:30 uterine fibroids; Hypothyroidism; aa5 07:42 Hypertensive disorder; jl7 - PSHx: 07:42 Appendectomy; Cholecystectomy; lap band; section; jl7 - Immunization history:: Adult Immunizations up to date. - Social history:: Smoking status: Patient denies any tobacco usage or history of. - Family history:: not pertinent. ROS: 08:09 Constitutional: Negative for fever, chills, and weight loss, Cardiovascular: Negative rt for chest pain, palpitations, and edema, Abdomen/GI: Negative for abdominal pain, nausea, vomiting, diarrhea, and constipation, MS/Extremity: Negative for injury and deformity, Skin: Negative for injury, rash, and discoloration, Neuro: Negative for headache, weakness, numbness, tingling, and seizure, Psych: Negative for depression, anxiety, suicide ideation, homicidal ideation, and hallucinations. 08:09 Respiratory: Positive for shortness of breath, on exertion. 08:09 Respiratory: Negative for cough. Exam: 08:09 Constitutional: This is a well developed, well nourished patient who is awake, alert, rt and in no acute distress. Head/Face: Normocephalic, atraumatic. Chest/axilla: Normal chest wall appearance and motion. Nontender with no deformity. No lesions are appreciated. Cardiovascular: Regular rate and rhythm with a normal S1 and S2. No gallops, murmurs, or rubs. Normal PMI, no JVD. No pulse deficits. Respiratory: Lungs have equal breath sounds bilaterally, clear to auscultation and percussion. No rales, rhonchi or wheezes noted. No increased work of breathing, no retractions or nasal flaring. Abdomen/GI: Soft, non-tender, with normal bowel sounds. No distension or tympany. No guarding or rebound. No evidence of tenderness throughout. MS/ Extremity: Pulses equal, no cyanosis. Neurovascular intact. Full, normal range of motion. Neuro: Awake and alert, GCS 15, oriented to person, place, time, and situation. Cranial nerves II-XII grossly intact. Motor strength 5/5 in all extremities. Sensory grossly intact. Cerebellar exam normal. Normal gait. Psych: Awake, alert, with orientation to person, place and time. Behavior, mood, and affect are within normal limits. 08:09 ECG was reviewed by the Attending Physician. Vital Signs: 07:28 BP 160 / 97; Pulse 91; Resp 17; Temp 97.7(O); Pulse Ox 94% on R/A; Weight 155.13 kg; jl7 Height 5 ft. 10 in. ; Pain 0/10; 08:30 BP 163 / 81; Pulse 77; Pulse Ox 94% on R/A; hb 09:08 Resp 32; Pulse Ox 89% on R/A; hb 09:10 BP 161 / 73; Pulse 83; Resp 21; Pulse Ox 94% on R/A; hb 10:30 BP 140 / 86; Pulse 80; Resp 21; Pulse Ox 95% ; hb 11:30 BP 144 / 87; Pulse 85; Resp 20; Pulse Ox 94% on R/A; hb 12:30 BP 126 / 66; Pulse 82; Resp 22; Pulse Ox 95% on R/A; eh3 13:30 BP 112 / 76; Pulse 75; Resp 20; Pulse Ox 96% on R/A; eh3 07:28 Body Mass Index 49.07 (155.13 kg, 177.8 cm) jl7 07:28 Pain Scale: Adult jl7 09:08 after bathroom trip via wheelchair hb MDM: 07:29 Patient medically screened. rt 12:06 Differential diagnosis: pneumonia, Pneumothorax pulmonary edema, Pulmonary Embolism. rt Data reviewed: vital signs, nurses notes, lab test result(s), EKG, radiologic studies. Consideration of Admission/Observation Patient was admitted/placed on observation. Management of patient was discussed with the following: Hospitalist: Agrees to admit. I considered the following discharge prescriptions or medication management in the emergency department Medications were administered in the Emergency Department. See MAR. Independent interpretation of the following test(s) in the Emergency Department X-Ray: My interpretation is Edema seen on my interpretation of the x-ray images. Counseling: I had a detailed discussion with the patient and/or guardian regarding: the historical points, exam findings, and any diagnostic results supporting the discharge/admit diagnosis, lab results, radiology results, the need for further work-up and treatment in the hospital. Response to treatment: the patient's symptoms have mildly improved after treatment. 09/03 07:45 Order name: CBC with Diff; Complete Time: 08:40 rt 09/03 07:45 Order name: CMP; Complete Time: 08:40 rt 09/03 07:45 Order name: BNP; Complete Time: 08:40 rt 09/03 07:45 Order name: D-Dimer; Complete Time: 08:40 rt 09/03 07:45 Order name: Troponin High Sensitivity; Complete Time: 08:40 rt 09/03 10:33 Order name: SARS-COV-2 RT PCR; Complete Time: 11:55 hb 09/03 07:45 Order name: Chest Single View XRAY; Complete Time: 09:10 rt 09/03 09:11 Order name: CT Chest For PE Angio; Complete Time: 09:51 rt 09/03 10:02 Order name: Extrem Venous W Compression Wilber US rt 09/03 10:07 Order name: Echo with Doppler EDMS 09/03 11:40 Order name: US; Complete Time: 11:55 EDMS 09/03 07:45 Order name: EKG; Complete Time: 07:46 rt 09/03 07:45 Order name: EKG - Nurse/Tech; Complete Time: 07:57 rt EC:09 Rate is 66 beats/min. Rhythm is regular, Normal Sinus Rhythm with No ectopy. QRS [place] rt is Normal. MS interval is normal. QRS interval is normal. QT interval is normal. T waves are Inverted in leads aVF, V4, V5, V6. No ST changes noted. Interpreted by me. Administered Medications: 10:24 Drug: Enoxaparin Sub-Q 1 mg/kg {Note: administered 150mg per MD (100mg given to right aa5 lower abd and 50mg given to left lower abd).} Route: Sub-Q; Site: right lower abdomen; 13:36 Follow up: Response: No adverse reaction eh3 Disposition: 12:06 Critical Care:. rt Disposition Summary: 09/03/22 11:20 Hospitalization Ordered Hospitalization Status: Inpatient Admission rt Provider: Chintan Mora rt Location: Telemetry/MedSurg (Inpatient) rt Condition: Fair rt Problem: new rt Symptoms: are unchanged rt Bed/Room Type: Standard rt Room Assignment: 213(09/03/22 13:01) dw Diagnosis - Pulmonary embolism without acute cor pulmonale rt - Acute respiratory failure with hypoxia rt Forms: - Medication Reconciliation Form rt - SBAR form rt Critical care time excluding procedures: 12:06 Critical care time: Bedside Care: 30 minutes, Consultation: 5 minutes. Total time: 35 rt minutes Signatures: Dispatcher [employer] Sallie Acharya RN RN Ewelina Kingston RN RN aa5 Cristofer Saxena RN RN jl7 Darien Lang MD MD rt Anna Junior RN eh3 Corrections: (The following items were deleted from the chart) 13:01 11:20 rt dw
--- NOTE | 2022-09-03 11:39 | RAD REPORT ---
EXAM DESCRIPTION: US - Extrem Venous W Compress Wilber - 09/03/2022 11:00 am CLINICAL HISTORY: PE Bilateral leg edema and swelling. COMPARISON: No comparisons TECHNIQUE: Real-time sonographic interrogation of the left and right lower extremity deep venous sys tems was performed. FINDINGS: Normal compressibility, flow augmentation, phasic flow and spontaneous flow is identified in both the left and right lower extremity deep venous systems. IMPRESSION: No sonographic evidence of left or right lower extremity deep venous thrombosis.
[2022-09-03 12:17] VITALS: BMI 49.0
[2022-09-03] MEDS ORDERED: ONDANSETRON 4 MG/2 ML VIAL IV PRN (12:17)
[2022-09-03] MEDS ORDERED: ACETAMINOPHEN 500 MG TAB PO PRN (12:17)
--- NOTE | 2022-09-03 15:37 | P.HP ---
Certification for Inpatient Patient admitted to: Observation With expected LOS: <2 Midnights Practitioner: I am a practitioner with admitting privileges, knowledge of patient current condition, hospital course, and medical plan of care. Services: Services provided to patient in accordance with Admission requirements found in Title 42 Section 412.3 of the Code of Federal Regulations Patient History Date of Service: 09/03/22 Reason for admission: Shortness of breath History of Present Illness: 57-year-old morbidly obese woman with a history of arthritis, hypothyroidism and hypertension presented to the emergency department with a complaint of shortness of breath and pleuritic chest pain of a few days duration. Patient reports worsening of symptoms so she therefore presented to the ED for evaluation. CTA thorax done in the ED demonstrated bilateral pulmonary embolism greater on the right. Patient is hospitalized for further management. Allergies No Known Allergies Allergy (Verified 05/10/16 10:39) Home Medications: Levothyroxine Sodium [Synthroid] 175 mcg PO DAILY 05/10/16 lisinopriL [Prinivil] 20 mg PO BID 05/10/16 - Past Medical/Surgical History Has patient received pneumonia vaccine in the past: No Diabetic: No -: hypertension -: hypothyroidism -: appendectomy -: lap band sx -: colonooscopy -: cholecystectomy -: - Family History Mother -: Other (see notes) (History of blood clots) - Social History Smoking Status: Never smoker Alcohol use: No CD- Drugs: No Caffeine use: Yes Place of Residence: Home Review of Systems Other: Patient denies any fever or chills. She denies any abdominal pain, no nausea or vomiting. Except as documented, all other systems reviewed and negative. Physical Examination - Vital Signs Temperature: 97.1 F Blood Pressure: 123/55 Pulse: 79 Respirations: 16 Pulse Ox (%): 93 - Physical Exam General: Alert, In no apparent distress, Oriented x3, Obese HEENT: PERRLA, Mucous membr. moist/pink, Sclerae nonicteric Neck: Supple, JVD not distended Respiratory: Clear to auscultation bilaterally, Normal air movement Cardiovascular: Regular rate/rhythm, Normal S1 S2, No murmurs, Edema (Trace bilateral lower extremity edema) Capillary refill: <2 Seconds Gastrointestinal: Normal bowel sounds, Soft and benign, Non-distended, No ten derness Musculoskeletal: No swelling, No tenderness Integumentary: No rashes, No erythema, No cyanosis Neurological: Normal speech, Normal strength at 5/5 x4 extr, Cranial nerves 3-12 intact Lymphatics: No axilla or inguinal lymphadenopathy - Studies Laboratory Data (last 24 hrs) 09/03/22 07:58: Sodium 138, Potassium 4.5, BUN 23 H, Creatinine 1.04 H, Glucose 122 H, Total Bilirubin 0.8, AST 51 H, ALT 60 H, Alkaline Phosphatase 56 09/03/22 07:58: WBC 6.60, Hgb 14.2, Hct 42.9, Plt Count 147 L Assessment and Plan - Problems (Diagnosis) (1) Acute pulmonary embolism Current Visit: Yes Status: Acute (2) Morbid obesity Current Visit: Yes Status: Acute (3) Essential hypertension Current Visit: Yes Status: Acute (4) Hypothyroidism (acquired) Current Visit: Yes Status: Acute - Plan Place patient under observation. Of note venous Doppler of lower extremities negative for DVT. Etiology of pulm embolism is unknown. It is unclear if this was provoked but patient denied being sedentary for greater than 48 hours. Start full dose Lovenox. Transition to DOAC in a.m. Monitor blood pressure. CTA thorax shows no evidence of right heart strain. Blood pressure is stable. Resume other home medications for hypertension and hypothyroidism. Possible discharge in the a.m. if she remains clinically stable - Advance Directives Does patient have a Living Will: No Does patient have a Durable POA for Healthcare: No
[2022-09-03 16:29] LABS: Specific Gravity > 1.030 (1.005-1.030); Urine Bilirubin NEGATIVE (Negative); Urine Blood Negative (Negative); Urine Clarity Clear (Clear); Urine Color Light-Yellow (Yellow); Urine Glucose NEGATIVE (Negative); Urine Protein NEGATIVE (Negative); Urine Urobilinogen Normal (Normal); Urine pH 5.5 (5.0-7.0)
[2022-09-03] MEDS: lisinopriL 20 MG TAB PO SCH (20:15)
[2022-09-03] MEDS ORDERED: GABAPENTIN 300 MG CAP PO PRN (23:10)
[2022-09-04 04:31] LABS: Absolute Lymphocytes (CBC) 1.4 K/uL (0.7-4.9); Hematocrit 38.6 % (36.0-45.0); Lymphocytes % 23.1 % (15.3-44.8); MCV 96.4 fL (80-100); MPV 9.9 fL (7.6-11.3)
[2022-09-04 04:52] LABS: Magnesium 2.3 mg/dL (1.6-2.4); Phosphorus 3.7 mg/dL (2.5-4.9); Potassium 4.2 mEq/L (3.5-5.1)
[2022-09-04] MEDS ORDERED: LEVOTHYROXINE SOD 0.075 MG TAB PO SCH (06:30)
[2022-09-04] MEDS ORDERED: LEVOTHYROXINE SOD 0.1 MG TAB PO SCH (06:30)
[2022-09-04] MEDS ORDERED: HOME MED 1 EA UNK (Levothyroxine Sodium [Synthroid] 150 MCG Tablet) PO SCH (09:00)
[2022-09-04] MEDS: lisinopriL 20 MG TAB PO SCH (09:24)
--- NOTE | 2022-09-04 10:45 | P.DS ---
Admission Date: 09/03/22 Discharge Date: 09/04/22 Disposition: ROUTINE DISCHARGE Discharge Condition: FAIR Reason for Admission: Shortness of breath - Problems (1) Acute pulmonary embolism Status: Acute (2) Morbid obesity Status: Acute (3) Essential hypertension Status: Acute (4) Hypothyroidism (acquired) Status: Acute Brief History of Present Illness: 57-year-old morbidly obese woman with a history of arthritis, hypothyroidism and hypertension presented to the emergency department with a complaint of shortness of breath and pleuritic chest pain of a few days duration. Patient reports worsening of symptoms so she therefore presented to the ED for evaluation. CTA thorax done in the ED demonstrated bilateral pulmonary embolism greater on the right. Patient was hospitalized for further management. Hospital Course: Patient placed on observation on the medical floor and started on full dose Lovenox. She was asymptomatic during the hospital stay. She had no hypoxia and denied any chest pain. Patient was ambulating without shortness of breath and felt at baseline. Blood pressure has been stable. Patient is discharged with Eliquis for PE anticoagulation. Vital Signs/Physical Exam: Temp Pulse Resp BP Pulse Ox 97.2 F 84 20 194/91 H 94 09/04/22 08:00 09/04/22 09:24 09/04/22 08:00 09/04/22 09:24 09/04/22 08:00 General: Alert, In no apparent distress, Oriented x3 HEENT: Mucous membr. moist/pink Neck: Supple, JVD not distended Respiratory: Clear to auscultation bilaterally, Normal air movement Cardiovascular: No edema, Regular rate/rhythm, Normal S1 S2, No murmurs Gastrointestinal: Normal bowel sounds, Soft and benign, Non-distended, No tenderness Musculoskeletal: No swelling Integumentary: No rashes Neurological: Normal strength at 5/5 x4 extr Laboratory Data at Discharge: WBC 6.00 thou/uL (4.3-10.9) 09/04/22 04:16 Hgb 12.9 g/dL (12.0-15.0) D 09/04/22 04:16 Hct 38.6 % (36.0-45.0) 09/04/22 04:16 Plt Count 149 thou/uL (152-406) L 09/04/22 04:16 Sodium 139 mEq/L (136-145) 09/04/22 04:16 Potassium 4.2 mEq/L (3.5-5.1) 09/04/22 04:16 BUN 19 mg/dL (7-18) H 09/04/22 04:16 Creatinine 0.85 mg/dL (0.55-1.02) 09/04/22 04:16 Glucose 125 mg/dL (74-106) H 09/04/22 04:16 Phosphorus 3.7 mg/dL (2.5-4.9) 09/04/22 04:16 Magnesium 2.3 mg/dL (1.6-2.4) 09/04/22 04:16 Total Bilirubin 0.8 mg/dL (0.2-1.0) 09/03/22 07:58 AST 51 U/L (15-37) H 09/03/22 07:58 ALT 60 U/L (13-56) H 09/03/22 07:58 Alkaline Phosphatase 56 U/L (45-117) 09/03/22 07:58 Home Medications: Levothyroxine Sodium [Synthroid] 175 mcg PO DAILY 05/10/16 lisinopriL [Prinivil*] 20 mg PO BID 05/10/16 Gabapentin 600 mg PO TID 09/03/22 Apixaban [Eliquis] 5 mg PO BID #74 tab 09/04/22 Folic Acid 1 mg PO DAILY #30 tab 09/04/22 New Medications: Apixaban [Eliquis] 5 mg PO BID #74 tab Folic Acid 1 mg PO DAILY #30 tab Diet: AHA Activity: Ad grady Followup: Carri Viveros DO, DO [Primary Care Provider] - 1-2 Weeks (Please call to schedule an appointment. )
[2022-09-04 12:26] VITALS: BP 138/75; TEMP 97.4
[2022-09-04 13:53] VITALS: O2SAT 94
--- NOTE | 2022-09-06 12:36 | EKG ---
Test Date: 2022-09-03 Test Time: 07:50:34 Dairy Technician: HB MEASUREMENT RESULTS: Intervals: Rate: 66 ND: 178 QRSD: 92 QT: 404 QTc: 423 Humphrey: P: 36 ND: 178 QRS: 8 T: -20 INTERPRETIVE STATEMENTS: Normal sinus rhythm with sinus arrhythmia Anterior infarct, age undetermined Compared to ECG 05/10/2016 10:57:50 Myocardial infarct finding now present Electronically Signed On 09-06-22 12:28:55 CDT by Luis Angel Almendarez
== END 2022-09-04 12:14 | disposition home or self-care (01) ==
LOC: ER 07:18 → ERHOLD 10:38 → 2ND 13:35
PROVIDERS: ADMIT Internal Medicine; ATTEND Internal Medicine
DX: I26.99 Other pulmonary embolism without acute cor pulmonale (principal); E66.01 Morbid (severe) obesity due to excess calories; E03.9 Hypothyroidism, unspecified; I10 Essential (primary) hypertension; Z68.42 Body mass index [BMI] 45.0-49.9, adult; Z20.822 Contact with and (suspected) exposure to COVID-19
CPT/HCPCS: 93005; 85025 ×2; 80048; 36415; 83735; 84100; 85379; 81003; 84484 ×4; 80053; 83880; 71275; 71045; 93970; 94760 ×2; 96372; 99285; U0003; Q9967; J1650 ×4; G0378 ×4

== ENCOUNTER 2024-09-11 12:07 | Emergency (ER) | payer BC ==
[2024-09-11 13:15] LABS: Specific Gravity 1.012 (1.005-1.030); Sqamous Epithelial <5 /HPF (None Seen); Urine Bacteria <20 /HPF (<20); Urine Bilirubin NEGATIVE (Negative); Urine Blood Negative (Negative); Urine Clarity Turbid (Clear); Urine Color Light-Yellow (Yellow); Urine Culture Reflex Order NOT NEEDED; Urine Glucose NEGATIVE (Negative); Urine Ketones NEGATIVE (Negative); Urine Microscopic Reflex YN ORDER UMIC; Urine Mucus Slight /HPF (None Seen); Urine Nitrite NEGATIVE (Negative); Urine Protein NEGATIVE (Negative); Urine RBC <5 /HPF (None Seen); Urine Urobilinogen Normal (Normal); Urine WBC <5 /HPF (<5); Urine pH 5.5 (5.0-7.0)
[2024-09-11 13:16] LABS: Absolute Basophils 0.1 K/uL (0-0.5); Absolute Eosinophils 0.3 K/uL (0-0.5); Absolute Lymphocytes (CBC) 1.5 K/uL (0.7-4.9); Absolute Monocytes 0.8 K/uL (0.1-1.3); Absolute Neutrophil 4.9 K/uL (1.8-8.0); Basophils % 0.7 % (0-1.3); Eosinophils % 4.3 % (0-4.4); Hematocrit 41.9 % (36.0-45.0); Hemoglobin 14.4 g/dL (12.0-15.0); Lymphocytes % 19.5 % (15.3-44.8); MCH 31.3 pg (27.0-35.0); MCHC 34.4 g/dL (32.0-36.0); MCV 91.1 fL (80-100); MPV 9.7 fL (7.6-11.3); Monocytes % 10.5 % (3.3-12.3); Nucleated Red Blood Cells % 0.1 % (0-0); Platelets 213 thou/uL (152-406); Red Cell Distribution Width 14.2 % (12.1-15.2)
[2024-09-11 13:29] LABS: Albumin/Globulin Ratio 1.1 (1.1-1.8); Anion Gap 12.1 mEq/L (5.0-15.0); Bilirubin Total 0.9 mg/dL (0.2-1.0); Globulin 3.7 g/dL (2.3-3.5); Potassium 4.1 mEq/L (3.5-5.1); Protein, Total 7.7 g/dL (6.4-8.2)
--- NOTE | 2024-09-11 13:32 | RAD REPORT ---
EXAMINATION: CT ABDOMEN AND PELVIS WITH CONTRAST CLINICAL INDICATION: ABD PAIN TECHNIQUE: CT abdomen and pelvis was performed, after the administration of IV contrast, [facility]. Axial, sagittal and coronal reconstructions were obtained. One or more of the following dose reduction techniques were used: Automated exposure control, adjustment of the mA and k V according to patient size, and iterative reconstruction. Unless otherwise specified, incidental findings do not require dedicated imaging follow-up. COMPARISON: No prior exam. FINDINGS: LOWER CHEST: Linear atelectasis left lung base. Small hiatal hernia. Gastric banding noted. LIVER: Mild fatty liver is present. No focal lesion or biliary dilatation is seen. Cholecystectomy clips. SPLEEN: Normal size. No focal lesion. PANCREAS: No mass, ductal dilation, or skylar-pancreatic fluid. ADRENALS: Normal; no mass. KIDNEYS: Normal size and contour. No hydronephrosis. GASTROINTESTINAL TRACT: No evidence of free air, significant intra-abdominal free fluid, bowel obstru ction or abscess. APPENDIX: Appendix not visualized, but no inflammatory changes in region of appendix. LYMPH NODES: No lymphadenopathy. MUSCULOSKELETAL: Advanced to the level lumbar degenerative changes. Degenerative changes both hips. ADDITIONAL FINDINGS: Abnormal appearance of the uterus with several fibroids likely present. IMPRESSION: No acute process identified. Prominent degenerative dextroscoliosis of the lumbar spine.
[2024-09-11] MEDS ORDERED: KETOROLAC 30 MG/ML INJ ONE (17:06)
--- NOTE | 2024-09-11 17:07 | ER ---
Nurse's Notes [facility] Name: Lorena Khalil Age: 59 yrs Sex: Female : 1965 Arrival Date: 09/11/2024 Time: 12:07 Bed 25 Private MD: Diagnosis: Right lower quadrant pain Presentation: 09/11 12:37 Chief complaint: Patient states: RLQ abdominal pain that radiates to back onset Tuesday. cm10 pt reports nausea. denies any urinary symptoms. Coronavirus screen: Client denies travel out of the [place] in the last 14 days. Ebola Screen: Patient denies travel to an Ebola-affected area in the 21 days before illness onset. Initial Sepsis Screen: Does the patient meet any 2 criteria? No. Patient's initial sepsis screen is negative. Does the patient have a suspected source of infection? No. Patient's initial sepsis screen is negative. Risk Assessment: Do you want to hurt yourself or someone else? Patient reports no desire to harm self or others. Onset of symptoms was September 08, 2024. 12:37 Method Of Arrival: Ambulatory cm10 12:37 Acuity: ARABELLA 3 cm10 Triage Assessment: 12:40 General: Appears in no apparent distress. comfortable, Behavior is calm, cooperative. cm10 Pain: Complains of pain in right lower quadrant Pain radiates to right low back Pain currently is 8 out of 10 on a pain scale. Quality of pain is described as pressure, stabbing, Pain began 2-3 days ago. Neuro: No deficits noted. Level of Consciousness is awake, alert, obeys commands, Oriented to person, place, time, situation, Appropriate for age. Respiratory: No deficits noted. Airway is patent Respiratory effort is even, unlabored, Respiratory pattern is regular, symmetrical. GI: Reports lower abdominal pain, nausea. Historical: - Allergies: 12:38 No Known Allergies; cm10 - Home Meds: 12:38 lisinopril 20 mg Oral tab 1 tab once daily [Active]; Synthroid 150 mcg Oral tab 1 tab cm10 once daily [Active]; Eliquis 5 mg oral tablet 1 tab 2 times per day [Active]; - PMHx: 12:38 Hypertensive disorder; Hypothyroidism; uterine fibroids; Pulmonary Embolism; cm10 - PSHx: 12:38 Appendectomy; section; Cholecystectomy; lap band; cm10 - Immunization history:: Adult Immunizations unknown. - Infectious Disease History:: Denies. - Social history:: Smoking status: Patient denies any tobacco usage or history of. - History obtained from: friend. Screenin:55 [facility] ED Fall Risk Assessment (Adult) History of falling in the last 3 months, jb4 including since admission No falls in past 3 months (0 pts) Confusion or Disorientation No (0 pts) Intoxicated or Sedated No (0 pts) Impaired Gait No (0 pts) Mobility Assist Device Used No (0 pt) Altered Elimination No (0 pt) Score/Fall Risk Level 0 - 2 = Low Risk Oriented to surroundings, Maintained a safe environment. Abuse screen: Denies threats or abuse. Nutritional screening: No deficits noted. Tuberculosis screening: No symptoms or risk factors identified. Assessment: 15:55 Reassessment: Patient appears in no apparent distress at this time. Patient and/or jb4 family updated on plan of care and expected duration. Pain level reassessed. Patient is alert, oriented x 3, equal unlabored respirations, skin warm/dry/pink. 16:00 Reassessment: Patient appears in no apparent distress at this time. Patient and/or jb4 family updated on plan of care and expected duration. Pain level reassessed. Patient is alert, oriented x 3, equal unlabored respirations, skin warm/dry/pink. 17:00 Reassessment: Patient appears in no apparent distress at this time. Patient and/or jb4 family updated on plan of care and expected duration. Pain level reassessed. Patient is alert, oriented x 3, equal unlabored respirations, skin warm/dry/pink. Vital Signs: 12:37 BP 159 / 95; Pulse 84; Resp 18; Temp 98.3(O); Pulse Ox 98% on R/A; Weight 149.69 kg cm10 (R); Height 5 ft. 10 in. (R); Pain 8/10; 15:55 BP 158 / 93; Pulse 64; Resp 15; Pulse Ox 99% on R/A; jb4 12:37 Body Mass Index 47.35 (149.69 kg, 177.8 cm) cm10 12:37 Pain Scale: Adult cm10 ED Course: 12:09 Patient arrived in ED. mr 12:38 Triage completed. cm10 12:39 Arm band placed on right wrist. Patient placed in an exam room, on a stretcher. cm10 12:43 Jarod Chang is Attending Physician. ci 13:01 CBC with Diff Sent. bc6 13:01 CMP Sent. bc6 13:01 Lipase Sent. bc6 13:01 Urinalysis w/ reflexes Sent. bc6 13:01 Initial lab(s) drawn, by la, sent to lab. Urine collected: clean catch specimen, kenya bc6 colored. Inserted saline lock: 20 gauge in left antecubital area, using aseptic technique. Blood collected. Flushed with 10 mL NS. 13:22 CT Abd/Pelvis - IV Contrast Only In Process Unspecified. EDMS 15:55 Patient has correct armband on for positive identification. Bed in low position. Call jb4 light in reach. Side rails up X 1. Provided Education on: plan of care. 15:55 No provider procedures requiring assistance completed. jb4 15:56 Santhosh Carreon, RN is Primary Nurse. jb4 17:00 IV discontinued, intact, bleeding controlled, No redness/swelling at site. Pressure jb4 dressing applied. Administered Medications: 15:55 Not Given (Patient Refused): fentanyl (pf)50 mcg IVP once jb4 15:55 Not Given (Patient Refused): ondansetron 4 mg IVP once; over 2 minutes jb4 17:20 Drug: Ketorolac IVP 15 mg IVP once Route: IVP; Site: left forearm; jb4 17:41 Follow up: Response: Medication administered at discharge. jb4 Medication: 15:55 VIS not applicable for this client. jb4 Outcome: 17:07 Discharge ordered by . ci 17:20 Discharged to home via wheelchair, with family, jb4 17:20 Condition: stable 17:20 Discharge instructions given to patient, Instructed on discharge instructions, follow up and referral plans. no drinking with medication, medication usage, Demonstrated understanding of instructions, follow-up care, medications, Prescriptions given X 1, 17:52 Patient left the ED. jb4 Signatures: Dispatcher [employer] EDGA JamesShae, Reg Reg mr Santhosh Carreon, RN RN jb4 Serina Corona Mercedez Ng RN RN cm10 Jarod Chang ci
--- NOTE | 2024-09-11 17:07 | EDPHYS ---
Physician Documentation [facility] [place] Name: Lorena Khalil Age: 59 yrs Sex: Female : 1965 Arrival Date: 09/11/2024 Time: 12:07 Bed 25 Private MD: ED Physician Jarod Chang HPI: 09/11 13:00 This 59 yrs old Female presents to ER via Ambulatory with complaints of Abdominal Pain, ci Back Pain. 13:00 . ci 17:11 Patient is a 59-year-old female with PMH hypertension, hypothyroidism, uterine ci fibroids, PE on Eliquis who presents to the ED with chief complaint of right lower quadrant abdominal pain that began 2 days ago. Pain is sharp, radiates into the back. No aggravating factors. Denies urinary symptoms, fever, vaginal bleeding, vaginal discharge. Has had some nausea but no vomiting. Denies diarrhea/constipation.. Historical: - Allergies: 12:38 No Known Allergies; cm10 - Home Meds: 12:38 lisinopril 20 mg Oral tab 1 tab once daily [Active]; Synthroid 150 mcg Oral tab 1 tab cm10 once daily [Active]; Eliquis 5 mg oral tablet 1 tab 2 times per day [Active]; - PMHx: 12:38 Hypertensive disorder; Hypothyroidism; uterine fibroids; Pulmonary Embolism; cm10 - PSHx: 12:38 Appendectomy; section; Cholecystectomy; lap band; cm10 - Immunization history:: Adult Immunizations unknown. - Infectious Disease History:: Denies. - Social history:: Smoking status: Patient denies any tobacco usage or history of. - History obtained from: friend. ROS: 17:11 Constitutional: Negative for fever, chills, and weight loss, Cardiovascular: Negative ci for chest pain, palpitations, and edema, : Negative for injury, bleeding, discharge, and swelling, 17:11 Abdomen/GI: Positive for abdominal pain, nausea, Exam: 17:11 Constitutional: This is a well developed, well nourished patient who is awake, alert, ci and in no acute distress. Head/Face: Normocephalic, atraumatic. Eyes: Pupils equal round and reactive to light, extra-ocular motions intact. Lids and lashes normal. Conjunctiva and sclera are non-icteric and not injected. Cornea within normal limits. Periorbital areas with no swelling, redness, or edema. ENT: Nares patent. No nasal discharge, no septal abnormalities noted. Tympanic membranes are normal and external auditory canals are clear. Oropharynx with no redness, swelling, or masses, exudates, or evidence of obstruction, uvula midline. Mucous membranes moist. Neck: Trachea midline, no thyromegaly or masses palpated, and no cervical lymphadenopathy. Supple, full range of motion without nuchal rigidity, or vertebral point tenderness. No Meningismus. Chest/axilla: Normal chest wall appearance and motion. Nontender with no deformity. No lesions are appreciated. Cardiovascular: Regular rate and rhythm with a normal S1 and S2. No gallops, murmurs, or rubs. Normal PMI, no JVD. No pulse deficits. Respiratory: Lungs have equal breath sounds bilaterally, clear to auscultation and percussion. No rales, rhonchi or wheezes noted. No increased work of breathing, no retractions or nasal flaring. 17:11 Abdomen/GI: Inspection: obese Bowel sounds: normal, Palpation: moderate abdominal tenderness, in the right lower quadrant, rebound tenderness, is not appreciated, voluntary guarding, involuntary guarding, 17:11 Back: CVA tenderness, is absent, vertebral tenderness, is not appreciated, muscle spasm, is not present, 17:11 Neuro: Orientation: to person, place, time \T\ situation. Gait: is steady, Vital Signs: 12:37 BP 159 / 95; Pulse 84; Resp 18; Temp 98.3(O); Pulse Ox 98% on R/A; Weight 149.69 kg cm10 (R); Height 5 ft. 10 in. (R); Pain 8/10; 15:55 BP 158 / 93; Pulse 64; Resp 15; Pulse Ox 99% on R/A; jb4 12:37 Body Mass Index 47.35 (149.69 kg, 177.8 cm) cm10 12:37 Pain Scale: Adult cm10 MDM: 12:44 Medical Screening Exam initiated ci 17:11 Differential diagnosis: Hydronephrosis Inflammatory Bowel Disease Pyelonephritis UTI, ci nephrolithiasis, appendicitis, SBO, perforated viscus. 17:15 Data reviewed: vital signs, nurses notes. ED course: No acute findings warranting ci admission at this time. CBC with no leukocytosis or anemia CT abdomen/pelvis shows no SBO, no appendicitis, no perforation. Uterine fibroids noted which patient reports is chronic. Denies vaginal bleeding, vaginal discharge. No evidence of acute abdomen on exam. Stable for discharge and close outpatient follow-up.. 09/11 12:42 Order name: CBC with Diff; Complete Time: 14:01 cm10 09/11 12:42 Order name: CMP; Complete Time: 14:01 cm10 09/11 12:42 Order name: Lipase; Complete Time: 14:01 cm10 09/11 12:42 Order name: Urinalysis w/ reflexes; Complete Time: 14:01 cm10 09/11 13:00 Order name: CT Abd/Pelvis - IV Contrast Only; Complete Time: 14:01 ci 09/11 12:42 Order name: IV Saline Lock; Complete Time: 13:01 cm10 09/11 12:42 Order name: Labs collected and sent; Complete Time: 13:01 cm10 Administered Medications: 15:55 Not Given (Patient Refused): fentanyl (pf)50 mcg IVP once [facility] 15:55 Not Given (Patient Refused): ondansetron 4 mg IVP once; over 2 minutes 4 17:20 Drug: Ketorolac IVP 15 mg IVP once Route: IVP; Site: left forearm; [facility] 17:41 Follow up: Response: Medication administered at discharge. 4 Disposition Summary: 09/11/24 17:07 Discharge Ordered Notes: Location: Home ci Condition: Stable ci Diagnosis - Right lower quadrant pain ci Followup: ci - With: Private Physician - When: 2 - 3 days - Reason: Recheck today's complaints, Re-evaluation by your physician Discharge Instructions: - Discharge Summary Sheet ci - Abdominal Pain, Adult ci Forms: - Medication Reconciliation Form ci - Antibiotic Education ci - Prescription Opioid Use ci - Patient Portal Instructions ci - Leadership Thank You Letter ci Prescriptions: - dicyclomine 20 mg Oral tablet - take 1 tablet ORAL route 3 times per day NEEDED; 20 tablet; Refills: 0, ci Product Selection Permitted Signatures: Dispatcher [employer] Santhosh Givens RN RN jb4 Mercedez Ng RN RN cm10 Jarod Chang ci Corrections: (The following items were deleted from the chart) 12:42 12:42 CBC+H.LAB.BRZ ordered. EDMS EDMS 12:42 12:42 COMPREHENSIVE METABOLIC PANEL+C.LAB.BRZ ordered. EDMS EDMS 12: 12:42 LIPASE+C.LAB.BRZ ordered. EDMS EDMS 12: 12:42 Urinalysis+U.LAB.BRZ ordered. EDMS EDMS
== END 2024-09-11 17:52 | disposition home or self-care (01) ==
LOC: ER 12:07
DX: R10.31 Right lower quadrant pain (principal); R11.0 Nausea
CPT/HCPCS: 85025; 81001; 36415; 83690; 80053; 74177; 96374; 99284; Q9967